=== PATIENT | female | born 1975 | race Two or more races ===

== ENCOUNTER 2022-11-21 14:17 | Emergency (ER) | payer OTHER ==
[2022-11-21] VITALS (7 sets, daily range): BP systolic 81–95; BP diastolic 43–55; PULSE 75–112; RESP 15–24; TEMP 97.7–98.3; O2SAT 97–99
[~2022-11-21] VITALS: Ht 152.4 cm; Wt 75.0 kg
[2022-11-21] MEDS ORDERED: ONDANSETRON HCL 4 MG/2 ML VIAL IV ONE (14:45)
[2022-11-21] MEDS ORDERED: SODIUM CHLORIDE 0.9% 1,000 ML IVB ONE (14:45)
[2022-11-21] MEDS ORDERED: MORPHINE SULFATE 4 MG/ML SYR/VIAL IV ONE (14:45)
[2022-11-21 15:20] LABS: Basophils # (auto) 0.3 10 ^3/uL (0-0.2); Hemoglobin 9.8 g/dL (12.2-16.2); Mean Corpuscular Hemoglobin 26.6 pg (28.0-32.0); Mean Corpuscular Hgb Conc. 31.9 g/dL (32.0-36.0); Mean Corpuscular Volume 83.4 fL (80.0-100.0); Neutrophils # (auto) 22.5 10 ^3/uL (1.6-8.6); Nucleated Red Blood Cells % 0.1 %
[2022-11-21 15:22] LABS: Basophils % (auto) 0.9 % (0.0-2.0); Eosinophils # (auto) 1.3 10 ^3/uL (0-0.8); Eosinophils % (auto) 4.5 % (0.0-7.0); Hematocrit 30.7 % (36.0-46.0); Lymphocytes # (auto) 3.6 10 ^3/uL (0.4-5.4); Lymphocytes % (auto) 12.4 % (10.0-50.0); Monocytes # (auto) 1.3 10 ^3/uL (0-1.3); Monocytes % (auto) 4.6 % (0.0-12.0); Neutrophils % (auto) 77.6 % (37.0-80.0); Red Blood Cells 3.68 10^6/uL (4.0-5.20); Red Cell Distribution Width 14.6 % (11.8-14.3)
[2022-11-21] MEDS ORDERED: VANCOMYCIN 1GM/250ML 250 ML IV ONE (15:30)
[2022-11-21] MEDS ORDERED: cefTRIAXone 1GM/50ML D5W 50 ML IV ONE (15:30)
[2022-11-21] MEDS ORDERED: SODIUM CHLORIDE 0.9% 1,000 ML IV ONE ×2 (15:30)
[2022-11-21 15:35] LABS: Albumin 2.5 g/dL (3.4-5.0); Calcium 8.2 mg/dL (8.5-10.1); Potassium 3.5 mmol/L (3.5-5.1)
[2022-11-21 15:39] LABS: BUN/Creatinine Ratio 16.7 (10.0-20.0); Bilirubin, Total 0.4 mg/dL (0.2-1.0); Total Protein 5.7 g/dL (6.4-8.2)
[2022-11-21 16:19] LABS: Lactic Acid w/Reflex 2.7 mmol/L (0.4-2.0)
== END 2022-11-21 19:20 | disposition short-term general hospital (02) ==
LOC: EDBD 14:17 → ER 14:17
DX: I95.9 Hypotension, unspecified (principal); R10.2 Pelvic and perineal pain; R00.0 Tachycardia, unspecified; N93.8 Other specified abnormal uterine and vaginal bleeding; Z85.41 Personal history of malignant neoplasm of cervix uteri
CPT/HCPCS: 36415; 36430; 76856; 80053; 83605; 84702; 85025; 86850; 86900; 86901; 86920; 87040; 96361; 96365; 96367; 96375; 99291; J0696; J2270; J2405; J3370; J7030; P9016